=== PATIENT | female | born 1985 | race Two or more races ===

== ENCOUNTER → 2022-07-21 14:45 | Outpatient (BNVA) | payer OTHER, SELFPAY | PROVIDERS: PCP Internal Medicine; Visit Provider Anesthesiology | DX: M47.812 Spondylosis without myelopathy or radiculopathy, cervical region (principal); M50.30 Other cervical disc degeneration, unspecified cervical region | CPT/HCPCS: 99202 ==

== ENCOUNTER 2023-01-02 09:16 | Outpatient (REF) | payer OTHER, SELFPAY ==
--- NOTE | ~2023-01-02 | XR_ITS ---
EXAMINATION: XR CERVICAL SPINE CLINICAL INFORMATION: Spondylosis without myelopathy or radiculopathy COMPARISON: None available. TECHNIQUE: 6 views of the cervical spine, inclusive of flexion and extension views, were obtained. FINDINGS: Bone alignment is normal. No fracture or dislocation. Mild degenerative spondylosis and disc space narrowing at C6-C7. Right-sided neural foramen are patent. Left-sided neural foramen not well evaluated due to patient positioning. Prevertebral soft tissues are normal. XR/XR cervical spine 5V IMPRESSION: Mild degenerative changes at C6-C7.
== END 2023-01-02 09:17 | disposition home or self-care (01) ==
LOC: HO.XRAY 09:16
PROVIDERS: Visit Provider Anesthesiology
DX: M47.812 Spondylosis without myelopathy or radiculopathy, cervical region (principal); M50.30 Other cervical disc degeneration, unspecified cervical region
CPT/HCPCS: 72050

== ENCOUNTER → 2023-04-22 09:19 | Outpatient (BNVA) | payer OTHER, SELFPAY | PROVIDERS: PCP Internal Medicine; Visit Provider Anesthesiology | DX: M47.816 Spondylosis without myelopathy or radiculopathy, lumbar region (principal); M51.36 Other intervertebral disc degeneration, lumbar region | CPT/HCPCS: 99212 ==

== ENCOUNTER 2023-04-22 09:27 | Outpatient (AMB) | payer OTHER, SELFPAY ==
--- OUTSIDE RECORDS SUMMARY | 2023-04-22 09:20 | XMS_ITS | Continuity of Care Document ---
Author Name Unknown Organization [facility] Address [address] [place] [address]- Care Team Providers Care Medicine Teacher Name Role Phone Not on Staff, PCP Primary Care Physician Unavail able Encounter [facility] Date(s): 05/12/22 - 05/12/[address] [address]- Discharge Disposition: A-D/C Home Attending Physician: Yury Montoya MD Admitting Physician: Yury Montoya MD Referring Physician: Not on Staff, Referring MD Allergies, Adverse Reactions, Alerts No Known Allergies Medications acetaminophen-oxycodone 300 mg-2.5 mg oral tablet 1 tablet, By Mouth, Every 6 hours, PRN for pain, 0 Refills, Maintenance, 05/12/22 8:09:00 EDT, Tablet, Partial fill upon patient request if the prescription is for a schedule II opioid drug. Start Date: 05/12/22 Status: Ordered acetaminophen-oxyCODONE 325 mg-5 mg oral tablet 1, tablet, By Mouth, Every 4 hours, PRN, for 3 days, # 20 tablet, Refills 0, Tot. Refills 0, Acute,as needed for pain, 05/15/22 9:17:00 EDT, 05/12/22 9:17:00 EDT, Route to Pharmacy Electronically, [facility]/pharmacy #[id number] Tablet, Partial fill upon patient... Start Date: 05/12/22 Stop Date: 05/15/22 Status: Ordered nabumetone 750 mg oral tablet 1 tablet = 750 mg, By Mouth, Daily, # 90 tablet, 0 Refills, Maintenance, 05/12/22 8:09:00 EDT, Tablet, Partial fill upon patient request if the prescription is for a schedule II opioid drug. Start Date: 05/12/22 Status: Ordered orphenadrine 100 mg oral tablet, extended release 100 mg, 1, tablet, By Mouth, 2 times a day, # 14 tablet, Refills 0, Maintenance, 05/12/22 8:09:00 EDT, Partial fill upon patient request if the prescription is for a schedule II opioid drug. Start Date: 05/12/22 Stop Date: 05/19/22 Status: Ordered propranolol 20 mg oral tablet 20 mg, 1, tablet, By Mouth, 2 times a day, # 60 tablet, Refills 5, Maintenance, 05/12/22 8:09:00 EDT, Partial fill upon patient request if the prescription is for a schedule II opioid drug. Start Date: 05/12/22 Status: Ordered Triamcinolone 0.025% Topical 1 application, Topically, 2 times a day, 0 Refills, Maintenance, Cream Start Date: 05/12/22 Status: Ordered Vital Signs Most recent to oldest [Reference Range]: 1 2 Height 158 cm (05/12/22 9:28 AM) 158 cm (05/12/22 8:05 AM) Weight 84.1 kg (05/12/22 8:05 AM) Oxygen Saturation [94-100 %] 98 % (05/12/22 9:28 AM) 100 % (05/12/22 8:03 AM) Pulse Rate [55-90 bpm] 74 bpm (05/12/22:28 AM) 108 bpm *H* (05/12/22 8:03 AM) Blood Pressure [90-138/55-84 mm Hg] 108/ 72mm Hg (05/12/22 9:28 AM) 108/69mm Hg (05/12/22 8:03 AM) Respiratory Rate [16-30 br/min] 20 br/mi n (05/12/22 9:28 AM) 18 br/min (05/12/22 8:03 AM) Temperature [96.8-100.4 DegF] 97.6 DegF (05/12/22 8:03 AM) Liters per Minute 0 L/min (05/12/22 9:28 AM) Mode of Delivery (Oxygen) Room air (05/12/22 9:28 AM) Room air (05/12/22 8:03 AM) Blood pressure sites Arm, right (05/12/22 9:28 AM) Arm, right (05/12/22 8:03 AM) Temperature Route Temporal (05/12/22 8:03 AM) Dry Weight 84.1 kg (05/12/22 8:05 AM) Social History Social History Type Response Smoking Status Never (less than 100 in lifetime) entered on: 05/12/22 Sex Care Team Personnel Name: Not on Staff, PCP
--- NOTE | 2023-04-22 09:27 | A.OFFVIS_ITS ---
Intake Vital Signs 04/22/23 09:37 Height 5 ft 2 in Weight 190 lb BMI 34.7 BP 122/78 Blood Pressure Location Lt brachial Position Sitting Respiration 18 Pulse 85 Pulse Source Pulse Oximeter Pulse Oximetry (%) 97 Oxygen Delivery Method Room Air Intake Visit Reasons: FOLLOW UP AFTER CERVICAL XRAY/RESULTS Intake Note: patient comes in for follow up and to discuss xray results. Allergies No Known Allergies Allergy (Verified 04/22/23 09:35) HPI HPI Comments History of Present Illness Details Dionne is back in my office with another complain. She reports severe lower back pain with radiation into the bilateral lower extremities on posterior surface of bilateral lower extremities into the hips bilateral lower legs and to the level of the ankles but not to the toes. Last time in our office she was complaining on cervicalgia and was sent for physical therapy. Unfortunately she did not go for physical therapy. I offered her to go with this new program for physical therapy. She reports that tizanidine I prescribed to her last time 4 mg t.i.d. does not help her pain. She reports NSAIDs do not help her pain. She showed me results of the lumbar spine x-ray done elsewhere on her cellphone. It is significant for L5-S1 disc space narrowing and arthritis. I told her to try physical therapy 4 sessions with very intense home exercise program . If of this will not help her pain I will offer her medial branch block L3-L4 does ramus L5 bilateral diagnostic to help her pain. However with some radiation of the pain all the way down to bilateral ankles possibility exists that this pain is secondary to nerve root compressions. I would need to send her to MRI if medial branch block and physical therapy will be not effective. She will give us call to schedule appointment as discussed above. Prior: Ms. Mac is 37 years old female who presents in my office with complains on multiple pain generators however the attention was mostly concentrated on her cervical spine today.? She reports that she has pain in posterior neck without radiation into the extremities she has pain in the lower back also without radiation she has pain in the knees and pain in bilateral hands. She recently came from [place] where previously she had physical therapy chiropractic manipulation and massage therapy for a her pain conditions with unknown results.? She reports that she so risk management internship for her pain conditions however when we were asking her if out immune disorders were diagnosed by risk management internship to her she answered no.? She is currently on oxycodone to help her pain.? She never had any injections to help her pain.? She showed me the report of her lumbar spine x-ray which was evident of L5 and S1 trivial changes however she never had any images of her neck.? He has obvious that her neck is bothering her the most. Her past medical history significant for skin cancer only.? It was basal cell carcinoma.? She also had appendectomy, colon surgery, she had cataract surgeries and plastic surgery including abdominoplasty and breast reduction. She denies smoking cigarettes. [facility] Medical History (Updated 04/22/23 @ 09:59 by Tom Gannon MD) Cervicalgia Fibromyalgia History of basal cell carcinoma Rosacea Surgical History (Updated 07/21/22 @ 15:21 by SIS Waddell) History of appendectomy Review of Systems Const Denies fatigue, Denies weight gain and Denies weight loss Eyes Denies blurry vision ENT Reports Normal hearing present and Denies sore throat Card Denies dyspnea Resp Denies cough and Denies dyspnea GI Denies constipation and Denies diarrhea Denies urinary frequency and Denies dysuria Musc Denies numbness and Reports tingling Neuro Reports Normal hearing present, Denies Abnormal speech present, Denies numbness, Denies Sensory deficit (Neuro), Reports tingling and Denies tremor(s) Psych Reports abnormal sleep pattern and Denies depression Endo Denies fatigue Physical Exam Vital Signs: Last Vital Signs Pulse 85 04/22/23 09:37 Resp 18 04/22/23 09:37 BP 122/78 04/22/23 09:37 Pulse Ox 97 04/22/23 09:37 Oxygen Delivery Method Room Air 04/22/23 09:37 BMI result Body Mass Index 34.7 Const General: cooperative and acute distress Orientation/consciousness: patient oriented x3 Eyes General: appearance normal, both eyes and all related structures Pupils: Equal, round and reactive pupils present EOM: EOMs intact bilaterally Neck Neck: Yes full ROM Chest Chest palpation & inspection: normal inspection of the chest Resp Effort & Inspection: normal respiratory effort, able to speak in complete sentences, normal respiratory pattern, no audible wheezes and no cough Cardio Jugular venous distension: no JVD GI Inspection: Yes normal to inspection Back/Spine/Pelvis Other: performance of SLR bilaterally, lassegue test bilaterally and Jv test b ilaterally: all of them she reported aggravate her back pain. Flexing forward and flexing backwards aggravate her pain. She reports that she cannot differentiate which way her back pain is aggravated more. Loading test seemingly positive for the back pain aggravation Neuro General: patient oriented x3 and gait normal Cranial nerves: Yes Equal, round and reactive pupils present and Yes Normal hearing present Speech: No Abnormal speech present Gait exam (Neuro): Normal gait present Motor exam (neuro): 5/5 motor strength present throughout Sensory Exam: No Sensory deficit (Neuro) Extrem General: No pedal edema Psych Speech and movement: Normal speech and movement present Affect: normal affect Attitude: cooperative Thought process: Normal thought process present Thought content: Normal thought content present Insight: Good insight present (Psych) Judgement: Good judgement present (Psych) Assessment & Plan Assessment & Plan (1) Disc degeneration, lumbar: Code(s): M51.36 - Other intervertebral disc degeneration, lumbar region (2) Spondylosis without myelopathy or radiculopathy, lumbar region: Code(s): M47.816 - Spondylosis without myelopathy or radiculopathy, lumbar region Plan 1. Patient will be sent for physical therapy to treat her lower back pain. 2. She will do home exercise program in conjunction of physical therapy. 3. If physical therapy will not be effective I will offer her medial branch block L3-L4 dorsal ramus L5 because on the x-ray report she showed me on the portal on her cellphone there is intervertebral disc narrowing and facet joint arthropathy at L5-S1. 4. If those measures will not be effective for the patient I will send her for the MRI of the lumbar spine. Orders: Orders PT Evaluation and Treatment Today M47.816 - Spondylosis without myelopathy or radiculopathy, lumbar region, M51.36 - Other intervertebral disc degeneration, lumbar region Coding Level of Care Code Est Pt Level 4 (60089) Diagnoses Disc degeneration, lumbar M51.36 Spondylosis without myelopathy or radiculopathy, lumbar region M47.816
[2023-04-22 09:37] VITALS: BP 122/78; PULSE 85; RESP 18; O2SAT 97; BMI 34.7
== END 2023-04-22 09:52 | disposition home or self-care (01) ==
PROVIDERS: PCP Internal Medicine; Visit Provider Anesthesiology
DX: M51.36 Other intervertebral disc degeneration, lumbar region (principal); M47.816 Spondylosis without myelopathy or radiculopathy, lumbar region
CPT/HCPCS: 99213

== ENCOUNTER 2023-06-23 17:00 | Outpatient (RCR) | payer OTHER, SELFPAY ==
--- NOTE | 2023-06-01 18:00 | MHC.PT.EP ---
[facility] [place] Office [place] Office [place] Office [address] Marcelina Gupta [address] [phone] F: [phone] F: [phone] F: [phone] F: [phone] Physical Therapy Plan of Care Date of Evaluation: 06/01/23 Date of Surgery: N/A Diagnosis: spondylosis lumbar spine (RL) Assessment: pt is a 38 y/o female presenting to physical therapy w/ referring diagnosis of M47.816 spondylosis without myelopathy or radiculopathy, lumbar region; M51.36 other intervertebral disc degeneration, lumbar region. Signs and symptoms consistent w/ lumbar radiculopathy as well as increased muscle tension. Impairments include pain, decreased range of motion, decreased strength, impaired functional mobility, impaired postural awareness, and altered ambulation mechanics. pt is a good candidate for skilled PT due to age, potential remediation of impairments, typical disease/condition progression and prognosis, comorbidities, and motivation. pt would benefit from skilled PT intervention to provide a tailored strengthening and stretching exercise program, functional training, gait training, postural re-training, neuromuscular re-education, modalities as needed for pain, equipment safety demonstration. Frequency and Duration: The patient will be seen 2x/wk for 4 wks Short Term Goals: pt will be I w/ HEP to promote self-management of condition. pt will demo proper sitting posture w/ lumbar roll to promote neutral spine w/ seated ADLs. Mcc Goals: pt will report a statistically significant improvement in self-reported outcome measure, Andrew, to promote return to PLOF. pt will demo proper lifting mechanics w/ 25# w/o verbal cueing. Treatment Plan: Modalities to reduce pain, spasms and effusion. Manual therapy to restore motion and function. Therapeutic exercise to improve strength and flexibility. Neuromuscular re-education for posture and balance. Therapeutic activities to return to functional activities of daily living. Electronically signed by: Dionne Sarkar PT, DPT Please sign and return to therapist. Thank you for your referral.
--- NOTE | 2023-07-03 10:13 | MHC.PT.DC ---
[facility] [place] Office [place] Office [place] Office [address] Marcelina Gupta [address] [facility] [phone] F: [phone] F: [phone] F: [phone] F: [phone] Physical Therapy Discharge Report Diagnosis: spondylosis lumbar spine (RL) Date of Surgery: N/A Date of Evaluation: 06/01/23 Date of Discharge: 07/03/23 Treatments to Date: 2 Cancellations to Date: 1 No Shows to Date: 1 Discharge Status: Visit Non-compliance Discharge Summary: The patient only scheduled 4 of 8 recommended visits. She has not followed-up with any additional appointments in over three weeks. She is being discharged for non-compliance. Her current status is unknown. Electronically signed by: Dionne Sarkar PT, DPT Please sign and return to therapist. Thank you for your referral.
== END 2023-07-03 10:13 | disposition home or self-care (01) ==
LOC: HO.PT 17:00
PROVIDERS: PCP Internal Medicine; Visit Provider Anesthesiology
DX: M47.816 Spondylosis without myelopathy or radiculopathy, lumbar region (principal); M51.36 Other intervertebral disc degeneration, lumbar region
CPT/HCPCS: 97110; 97162